=== PATIENT | female | born 1945 | race Caucasian/White ===

== ENCOUNTER → 2017-03-13 | Outpatient (CLI) | payer MEDICARE, OTHER ==
--- NOTE | 2017-03-13 11:00 | US ---
EXAMINATION TYPE: US renal artery duplex complet DATE OF EXAM: 03/13/2017 COMPARISON: NONE CLINICAL HISTORY: I10 essential hypertention, . MEASUREMENTS: RENAL SIZE: Rt Kidney: 11.0 x 3.3 x 4.5cm Lt Kidney: 10.8 x 5.0 x 4.6cm RESISTANCE INDEX Right: 0.70 Left: 0.67 RA/AO RATIO (< 3.5 ) Right: 1.7 Left: 2.0 RA VELOCITY ( < 180 cm/s) Right: 130cm/s Left: 111cm/s Atherosclerotic plaque noted in aorta. IMPRESSION: No diagnostic evidence of renal artery stenosis. There is extensive atherosclerotic plaque involving the aorta.
== END | disposition home or self-care (01) ==
LOC: RADUSMAIN 08:53
PROVIDERS: ATTEND Family Medicine
DX: I70.0 Atherosclerosis of aorta (principal); I10 Essential (primary) hypertension
CPT/HCPCS: 93975

== ENCOUNTER → 2018-02-27 | Outpatient (CLI) | payer MEDICARE, OTHER ==
--- NOTE | 2018-02-28 11:18 | MM ---
Reason for exam: screening (asymptomatic). Last mammogram was performed 2 years ago. History: Patient is postmenopausal. Took estrogen for 6 years 11 months beginning at age 55. Took progesterone for 6 years 11 months beginning at age 55. Physical Findings: A clinical breast exam by your physician is recommended on an annual basis and results should be correlated with mammographic findings. MG 3D Screening Mammo W/Cad Bilateral CC and MLO view(s) were taken. Prior study comparison: February 23, 2016, bilateral MG screening mammo w CAD. December 07, 2011, bilateral digital screening mammo w/CAD. The breast tissue is heterogeneously dense. This may lower the sensitivity of mammography. There is no discrete abnormality. No significant changes when compared with prior studies. ASSESSMENT: Negative, BI-RAD 1 RECOMMENDATION: Routine screening mammogram of both breasts in 1 year.
== END | disposition home or self-care (01) ==
LOC: RADMAMWWP 08:11
PROVIDERS: ATTEND Family Medicine
DX: Z12.31 Encounter for screening mammogram for malignant neoplasm of breast (principal)
CPT/HCPCS: 77063; 77067

== ENCOUNTER → 2018-11-25 | Outpatient (CLI) | payer MEDICARE, OTHER ==
--- NOTE | 2018-11-25 18:00 | ECHOF ---
Referral Reason:I25.10 angina pectoris MEASUREMENTS -------- HEIGHT: 154.9 cm WEIGHT: 60.3 kg BP: 161/76 RVIDd: 2.6 cm (< 3.3) IVSd: 1.1 cm (0.6 - 1.1) LVIDd: 4.0 cm (3.9 - 5.3) LVPWd: 0.9 cm (0.6 - 1.1) IVSs: 1.3 cm LVIDs: 2.9 cm LVPWs: 1.5 cm LA Diam: 3.5 cm (2.7 - 3.8) LAESV Index (A-L): 25.34 ml/m Ao Diam: 2.6 cm (2.0 - 3.7) AV Cusp: 2.0 cm (1.5 - 2.6) MV EXCURSION: 12.234 mm (> 18.000) MV EF SLOPE: 98 mm/s (70 - 150) EPSS: 0.4 cm MV E Fish: 1.12 m/s MV DecT: 153 ms MV A Fish: 0.98 m/s MV E/A Ratio: 1.15 FINDINGS -------- Sinus rhythm. This was a technically adequate study. The left ventricular size is normal. There is borderline concentric left ventricular hypertrophy. Overall left ventricular systolic function is normal with, an EF between 55 - 60 %. The diastolic filling pattern is normal for the age of the patient 11.19. The right ventricle is normal in size. Normal LA size by volume 22+/-6 ml/m2. The right atrial size is normal. Interatrial and interventricular septum intact. The aortic valve is trileaflet, and appears structurally normal. No aortic stenosis or regurgitation. The mitral valve leaflets are mildly thickened. Ordy-sh-gaarsofw mitral regurgitation is present. The tricuspid valve appears structurally normal. Trace tricuspid regurgitation present. Trace/mild (physiologic) pulmonic regurgitation. The aortic root size is normal. Normal inferior vena cava with normal inspiratory collapse consistent with estimated right atrial pre ssure of 5 mmHg. There is no pericardial effusion. CONCLUSIONS -------- 1. Sinus rhythm. 2. This was a technically adequate study. 3. The left ventricular size is normal. 4. There is borderline concentric left ventricular hypertrophy. 5. Overall left ventricular systolic function is normal with, an EF between 55 - 60 %. 6. The diastolic filling pattern is normal for the age of the patient 11.19 7. Normal LA size by volume 22+/-6 ml/m2. 8. The aortic valve is trileaflet, and appears structurally normal. No aortic stenosis or regurgitati on. 9. The mitral valve leaflets are mildly thickened. 10. Pvwe-yu-ydrzyktg mitral regurgitation is present. 11. The tricuspid valve appears structurally normal. 12. Trace tricuspid regurgitation present. 13. Trace/mild (physiologic) pulmonic regurgitation. 14. The aortic root size is normal. 15. Normal inferior vena cava with normal inspiratory collapse consistent with estimated right atrial pressure of 5 mmHg. 16. There is no pericardial effusion. IRRIGATION PUMP INSTALLER: Lida Elise RDCS
== END | disposition home or self-care (01) ==
LOC: RADECHMAIN 11:17
PROVIDERS: ATTEND Internal Medicine Interventional Cardiology
DX: I34.0 Nonrheumatic mitral (valve) insufficiency (principal); I37.1 Nonrheumatic pulmonary valve insufficiency
CPT/HCPCS: 93306

== ENCOUNTER → 2020-01-27 | Outpatient (CLI) | payer MEDICARE, OTHER ==
--- NOTE | 2020-01-27 09:52 | ECHOF ---
Referral Reason:I25.10, I38 MEASUREMENTS -------- HEIGHT: 157.5 cm WEIGHT: 64.4 kg BP: IVSd: 0.9 cm (0.6 - 1.1) LVIDd: 4.1 cm (3.9 - 5.3) LVPWd: 0.9 cm (0.6 - 1.1) IVSs: 1.7 cm LVIDs: 1.3 cm LVPWs: 1.8 cm LAESV Index (A-L): 28.25 ml/m Ao Diam: 2.1 cm (2.0 - 3.7) AV Cusp: 1.5 cm (1.5 - 2.6) LA Diam: 3.1 cm (2.7 - 3.8) MV EXCURSION: 10.152 mm (> 18.000) MV EF SLOPE: 35 mm/s (70 - 150) EPSS: 0.9 cm MV E Fish: 1.07 m/s MV DecT: 265 ms MV A Fish: 1.04 m/s MV E/A Ratio: 1.04 AV maxP.80 mmHg AV meanP.27 mmHg RAP: 5.00 mmHg RVSP: 11.97 mmHg FINDINGS -------- This was a technically good study. The left ventricular size is normal. Left ventricular wall thickness is normal. Overall left vent ricular systolic function is normal with, an EF between 55 - 60 %. The diastolic filling pattern is normal for the age of the patient 12.85. The right ventricle is normal in size. The left atrial size is normal. Normal LA size by volume 22+/-6 ml/m2. The right atrial size is normal. Interatrial and interventricular septum intact. Aortic valve is trileaflet and is mildly thickened. The mitral valve is normal. Mild mitral regurgitation is present. The tricuspid valve appears structurally normal. Mild tricuspid regurgitation present. Right vent ricular systolic pressure is normal at < 35 mmHg. There is no pulmonic regurgitation present. The aortic root size is normal. Normal inferior vena cava with normal inspiratory collapse consistent with estimated right atrial pre ssure of 5 mmHg. There is no pericardial effusion. CONCLUSIONS -------- 1. The left ventricular size is normal. 2. Left ventricular wall thickness is normal. 3. Overall left ventricular systolic function is normal with, an EF between 55 - 60 %. 4. The diastolic filling pattern is normal for the age of the patient 12.85 5. Aortic valve is trileaflet and is mildly thickened. 6. Mild mitral regurgitation is present. 7. Mild tricuspid regurgitation present. 8. There is no pericardial effusion. INJECTION WAX MOLDER: Ayaka Hu RDCS
--- NOTE | 2020-01-27 12:01 | NM ---
EXAMINATION TYPE: NM stress cardiolite complete DATE OF EXAM: 01/27/2020 COMPARISON: NONE HISTORY: I 25.10, I 38 TECHNIQUE: After the intravenous administration of 9.4 mCi Tc 99m Sestamibi - Rest images obtained 4 5 minutes post injection. The patient exercised using a SUE protocol and 1 minute prior to peak e xercise was injected with 25.1 mCi Tc 99m Sestamibi - Stress images obtained 10 minutes post injectio n. Patient achieved greater than 85% of predicted maximal heart rate. FINDINGS: Targeted heart rate was achieved during performance of the study. Review of stress and rest SPECT jarrod ges demonstrates no distinct perfusion abnormality. Gated analysis shows normal wall motion with an estimated left ventricular ejection fraction of 70 %. IMPRESSION: Consider echocardiographic correlation for elevated ejection fraction. No stress induced left ventric ular myocardial ischemia.
--- NOTE | 2020-01-27 13:08 | EST ---
EXERCISE STRESS AGE: 74 SEX: F HT: 5'2" WT: 142 lbs. PROTOCOL: Manolo STAGE: 2 DURATION OF EXERCISE: 4:00 HEART RATE REST: 79 BLOOD PRESSURE REST: 149/75 MAXIMUM HEART RATE ACHIEVED: 136 MAXIMUM BLOOD PRESSURE: 180/85 85% MPHR: 123 100% MPHR: 145 METS: 5.8 INDICATIONS: Hypertension, dyslipidemia. CLINICAL INFORMATION: Baseline EKG shows sinus rhythm, normal axis, normal intervals. Patient exercised on Manolo protocol for a total of 4 minutes achieving 5 METS, 94% of predicted maximal heart rate without chest pain. At peak exercise, there was [address]-segment depression noted in the inferolateral leads. CONCLUSION: 1. Limited exercise tolerance. 2. Abnormal stress test by EKG criteria. 3. Cardiolite portion of the stress test will be reported separately. MMODL / IJN: [id number] /
== END | disposition home or self-care (01) ==
LOC: RADNMMAIN 08:21
PROVIDERS: ATTEND Internal Medicine Interventional Cardiology
DX: I08.1 Rheumatic disorders of both mitral and tricuspid valves (principal); R94.31 Abnormal electrocardiogram [ECG] [EKG]; I25.10 Atherosclerotic heart disease of native coronary artery without angina pectoris
CPT/HCPCS: 93017; 93306; 78452; A9500

== ENCOUNTER → 2022-01-25 | Outpatient (CLI) | payer MEDICARE, OTHER ==
--- NOTE | 2022-01-25 17:59 | US ---
EXAMINATION TYPE: US thyroid st tissue head/neck DATE OF EXAM: 01/25/2022 COMPARISON: NONE CLINICAL HISTORY: 76-year-old female E04.1 thyroid nodule. TECHNIQUE: Multiple sonographic images of the thyroid gland are obtained. FINDINGS: GLAND SIZE: Right Lobe: 5.5 x 2.8 x 3.1 cm Overall Parenchyma: heterogenous Left Lobe: 4.5 x 2.3 x 1.6 cm Overall Parenchyma: heterogeneous Isthmus Thickness: 1.2 cm NODULES RIGHT: # of nodules measured on right: Numerous. Solid two measured. 1. 3.2 X 2.3 x 2.4 cm, upper lateral, solid or almost completely solid, hyperechoic TR 3 nodule, wh ich is wider than tall, with smooth margins, without echogenic foci. 2. 2.0 X 1.2 x 1.2 cm, lower mid, solid or almost completely solid, isoechoic TR 3 nodule, which is wider than tall, with smooth margins, without echogenic foci. LEFT: # of nodules measured on left: 2 1. 1.3 X 1.6 x 1.2 cm, mid mid, mixed cystic and solid, TR 3 nodule, which is taller than wide, wit h smooth margins, without echogenic foci. 2. 1.6 X 1.2 x 1.5 cm, lower mid, spongiform, hypoechoic TR 3 nodule, which is wider than tall, wi th smooth margins, without echogenic foci. ISTHMUS: # of nodules measured in the isthmus: 1 1. 2.9 X 1.8 x 2.4 cm solid or almost completely solid, hyperechoic TR 3 nodule, which is wider nishi n tall, with smooth margins, without echogenic foci. Bilateral neck scanned, no evidence of lymphadenopathy. IMPRESSION: Multinodular goiter. The largest nodules are measured. On the right, a 3.2 cm upper pole TR 3 nodule meets criteria for FNA. In the thyroid isthmus, a 2.9 cm TR 3 nodule needs criteria for FNA. The sue ining nodules can be reassessed at follow-up.
[2022-01-25 23:17] LABS: T4, Free (Free Thyroxine) 1.66 ng/dL (0.800-1.800)
== END | disposition home or self-care (01) ==
LOC: RADUSWWP 15:09
PROVIDERS: ATTEND Otolaryngology
DX: E04.2 Nontoxic multinodular goiter (principal)
CPT/HCPCS: 76536; 84439; 84443; 84481

== ENCOUNTER → 2023-02-21 | Outpatient (CLI) | payer MEDICARE, OTHER ==
--- NOTE | 2023-02-21 12:00 | CA ---
Stress Echo Report Luisa Huggins Age: 77 Gender: F : 1945 Exam Date: 02/21/2023 09:49 Exam Location: [facility] Ht (in): 61 Wt (lb): 131 Ordering Physician: Darya Luque MD Referring Physician: DARYA LUQUE,, [employer] Department Manager: Lida Elise RDCS Technologist Lida Elise RDCS Procedure CPT: Indication: I25.10 Athscl heart disease ICD-9 Codes: Rhythm: Patient History: HTN, ELEVATED CHOLESTEROL LEVELS, FAMILY HX OF HEART DISEASE, PRIOR HEART CATH WITH STENT, RHEUMATIC FEVER Cardiac Medications: Medications in past 24 hours: Contrast: Stress Results Protocol: Manolo Total dose(mL): Exercise Duration (min:sec): 6:[address] Depression (mm): Angina Score: Vega Score: METS: 7.3 Resting HR: 107 Resting BP: 137 / 64 Peak HR: 138 Peak BP: 170 / 68 Max Predicted HR: 142 97 % Max Predicted HR Target HR: 121 Double Product: [id number] Stress Summary: BP Response: Reason for Termination: MAX EXERTION/TARGET HR Cardiac Symptoms: NO SYMPTOMS ECG Analysis Resting ECG: Normal sinus rhythm, normal axis, heart rate 86 beats a minute Stress EC mm flat ST depressions at peak exercise and in early recovery. Returned back to baseline by 3 minutes 50 seconds in recovery. Arrhythmia: Few monomorphic PVCs at peak stress. Sustained arrhythmias Echo Analysis Resting Echo: Normal global LV systolic function. Normal regional resting wall motion Peak Echo Analysis: Normal augmentation of global and segmental systolic function in all myocardial segments. No stress-induced regional wall motion abnormality MEASUREMENTS (Male/Female) Normal Values CONCLUSIONS Good exercise tolerance for age achieving 7.3 METS, at 97% of aged predicted maximum heart rate Normal clinical and hemodynamic response to exercise Ischemic ECG response to exercise Nonischemic echocardiographic response to exercise Overall equivocal treadmill echocardiogram stress test, with positive stress ECG and negative stress echocardiogram Dr Dean Guzman (Electronically Signed) Final Date: 21 February 2023 11:59
== END | disposition home or self-care (01) ==
LOC: RADNMMAIN 09:04
PROVIDERS: ATTEND Internal Medicine Interventional Cardiology
DX: I25.10 Atherosclerotic heart disease of native coronary artery without angina pectoris (principal); I10 Essential (primary) hypertension; E78.00 Pure hypercholesterolemia, unspecified
CPT/HCPCS: 93351

== ENCOUNTER → 2023-02-22 | Outpatient (CLI) | payer MEDICARE, OTHER ==
--- NOTE | 2023-02-26 21:17 | MM ---
Reason for Exam: Screening (asymptomatic). Last mammogram was performed 5 year(s) and 0 month(s) ago. Patient History: Menarche at age 11. First Full-Term at age 22. Postmenopausal. Estrogen for 6 years from age 55 until age 60. Progesterone for 6 years from age 55 until age 60. Risk Values: Zaria 5 year model risk: 1.5%. NCI Lifetime model risk: 2.8%. Prior Study Comparison: 12/07/2011 Bilateral Screening Mammogram, [facility]. 02/23/2016 Bilateral Screening Mammogram, [facility]. 02/27/2018 Bilateral Screening Mammogram, [facility]. Tissue Density: The breast tissue is heterogeneously dense. This may lower the sensitivity of mammography. Findings: Analyzed By CAD. Chronic nodularity in the right breast. There is no suspicious group of microcalcifications or new suspicious mass in either breast. Overall Assessment: Benign, BI-RAD 2 Management: Screening Mammogram of both breasts in 1 year. . Patient should continue monthly self-breast exams. A clinical breast exam by your physician is recommended on an annual basis. This exam should not preclude additional follow-up of suspicious palpable abnormalities. Note on Zaria scores and lifetime risk: 1. A Zaria score greater than 3% is considered moderate risk. If this is the case, consider specialist referral to assess eligibility for a risk reducing agent. 2. If overall lifetime risk for the development of breast cancer is 20% or higher, the patient may qualify for future screening with alternating mammogram and breast MRI. Electronically signed and approved by: Mariann Lara M.D. Radiologist
== END | disposition home or self-care (01) ==
LOC: RADMAMWWP 14:46
PROVIDERS: ATTEND Family Medicine
DX: Z12.31 Encounter for screening mammogram for malignant neoplasm of breast (principal); Z78.0 Asymptomatic menopausal state
CPT/HCPCS: 77063; 77067

== ENCOUNTER 2024-01-08 03:01 | Inpatient (IN) | payer MEDICARE, OTHER ==
[2024-01-08] MEDS ORDERED: NALOXONE 0.4 MG/ML 1 ML VIAL IV PRN (05:01)
[2024-01-08] MEDS ORDERED: MAG HYDROX/AL HYDROX/SIMETH 30 ML CUP PO PRN (05:01)
[2024-01-08] MEDS ORDERED: ACETAMINOPHEN TAB 325 MG TAB PO PRN (05:01)
--- NOTE | 2024-01-08 05:16 | ED ---
Fall HPI - General Chief Complaint: Fall Stated Complaint: Fall Time Seen by Provider: 01/08/24 03:17 Source: patient, EMS Mode of arrival: EMS - History of Present Illness Initial Comments: This patient is 78-year-old woman who arrives here as a transfer from [facility]. The patient had gone to the hospital to have evaluation after she had fallen backwards striking her head and back. The patient had been sitting on the edge of a hot tub, and may have had syncopal episode. The patient had evaluation at the other hospital including CT scan of the brain and C-spine, as well as CT scan of the chest abdomen and pelvis. The patient was found to have L4 compression fracture, with no retropulsion to the cord. There is approximately 15% height loss per the radiology report. The patient is complaining of some back and head pain. Patient denies neurologic symptoms. 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 Witnessed: yes, by bystander Place Fall Occurred: other Loss of Consciousness: none Prolonged Down Time?: no Symptoms Prior to Fall: other Location: head, back Severity: moderate Quality: aching Associated Symptoms: headache - Related Data Home Medications Medication Instructions Recorded Confirmed Metoclopramide [Reglan] 10 mg PO BID PRN 01/06/15 01/08/24 Nitroglycerin Sl Tabs [Nitrostat] 0.4 mg SUBLINGUAL Q5M PRN 01/06/15 01/08/24 Clopidogrel [Plavix] 75 mg PO HS 01/08/24 01/08/24 Famotidine [Pepcid] 20 mg PO QAM 01/08/24 01/08/24 Flunisolide 1 spr EA NOSTRIL BID PRN 01/08/24 01/08/24 Levothyroxine Sodium [Synthroid] 37.5 mcg PO DAILY 01/08/24 01/08/24 Rosuvastatin [Crestor] 20 mg PO QAM 01/08/24 01/08/24 amLODIPine [Norvasc] 10 mg PO QAM 01/08/24 01/08/24 Previous Rx's Medication Instructions Recorded Cyclobenzaprine [Flexeril] 10 mg PO DAILY #7 tab 01/09/24 Docusate [Colace] 100 mg PO BID #30 capsule 01/09/24 lisinopriL [Zestril] 20 mg PO HS tab 01/09/24 traMADol HCl [Ultram] 50 mg PO Q6H PRN #28 tab 01/09/24 Allergies Allergy/AdvReac Type Severity Reaction Status Date / Time diltiazem [From Cardizem] Allergy Unknown Verified 01/08/24 08:14 atropine AdvReac SEVERE Verified 01/08/24 08:14 ANXIETY codeine AdvReac Nausea & Verified 01/08/24 08:14 Vomiting dimenhydrinate AdvReac PANIC Verified 01/08/24 08:14 [From Dramamine] ATTACK nebivolol HCl [From Bystolic] AdvReac SEVERE Verified 01/08/24 08:14 DEPRESSION scopolamine AdvReac HALLUCINATIONS, Verified 01/08/24 08:14 RAPID HEARTBEAT Review of Systems ROS Statement: Those systems with pertinent positive or pertinent negative responses have been documented in the HPI. ROS Other: All systems not noted in ROS Statement are negative. Constitutional: Denies: weakness Eyes: Denies: eye pain, vision change ENT: Denies: hearing loss Respiratory: Denies: cough, dyspnea, wheezes Cardiovascular: Denies: chest pain, palpitations, edema Gastrointestinal: Denies: abdominal pain, vomiting, diarrhea Genitourinary: Denies: dysuria, hematuria Musculoskeletal: Reports: as per HPI, back pain. Denies: arthralgia Skin: Denies: rash Neurological: Reports: headache. Denies: weakness, numbness, confusion Hematological/Lymphatic: Reports: easy bleeding (Taking Plavix) Past Medical History Past Medical History: Coronary Artery Disease (CAD), GERD/Reflux, Hyperlipidemia, Hypertension, Osteoarthritis (OA), Thyroid Disorder Additional Past Medical History / Comment(s): MACULAR DEGENERATION History of Any Multi-Drug Resistant Organisms: None Reported Past Surgical History: Adenoidectomy, Heart Catheterization With Stent, Tonsillectomy, Tubal Ligation Additional Past Surgical History / Comment(s): COLONOSCOPY, D&C , Past Anesthesia/Blood Transfusion Reactions: Motion Sickness, Postoperative Nausea & Vomiting (PONV) Date of Last Stent Placement:: 11/09/10 Past Psychological History: No Psychological Hx Reported Smoking Status: Never smoker Past Alcohol Use History: Occasional Past Drug Use History: None Reported - Past Family History Mother Family Medical History: Cancer General Exam Limitations: no limitations General appearance: alert, in no apparent distress Head exam: Present: normocephalic, other (Samantha to posterior scalp) Eye exam: Present: normal appearance, PERRL, EOMI. Absent: scleral icterus, conjunctival injection, nystagmus ENT exam: Present: normal oropharynx Neck exam: Present: normal inspection, full ROM. Absent: tenderness Respiratory exam: Present: normal lung sounds bilaterally. Absent: respiratory distress, wheezes, rales, rhonchi, stridor, chest wall tenderness, accessory muscle use Cardiovascular Exam: Present: regular rate, normal rhythm, normal heart sounds. Absent: systolic murmur, diastolic murmur, rubs, gallop GI/Abdominal exam: Present: soft. Absent: distended, tenderness, guarding, rebound, rigid, mass Extremities exam: Present: normal inspection, normal capillary refill. Absent: pedal edema, calf tenderness Back exam: Present: normal inspection. Absent: CVA tenderness (R), CVA t enderness (L), vertebral tenderness Neurological exam: Present: alert, oriented X3. Absent: motor sensory deficit Skin exam: Present: warm, dry, intact, normal color. Absent: rash Course Vital Signs 01/08/24 01/08/24 01/08/24 03:01 05:37 10:55 Temperature 98.7 F Pulse Rate 107 H 104 H 102 H Respiratory 16 16 20 Rate Blood Pressure 160/72 162/76 136/69 O2 Sat by Pulse 96 98 97 Oximetry 01/08/24 01/08/24 13:42 15:23 Temperature 98.9 F Pulse Rate 78 75 Respiratory 20 20 Rate Blood Pressure 134/59 135/73 O2 Sat by Pulse 96 96 Oximetry Medical Decision Making - Medical Decision Making Was pt. sent in by a medical professional or institution (, PA, MIX TECHNICIAN, urgent care, hospital, or senior living...) When possible be specific @ -Patient is transferred here from the outside hospital to have admission after head injury Did you speak to anyone other than the patient for history (EMS, parent, family, police, friend...)? What history was obtained from this source @ -[No] Did you review nursing and triage notes (agree or disagree)? Why? @ -[I reviewed and agree with nursing and triage notes] Were old charts reviewed (outside hosp., previous admission, EMS record, old EKG, old radiological studies, urgent care reports/EKG's, senior living records)? Report findings @ -[The transfer charts were reviewed] Differential Diagnosis (chest pain, altered mental status, abdominal pain women, abdominal pain men, vaginal bleeding, weakness, fever, dyspnea, syncope, headache, dizziness, GI bleed, back pain, seizure, CVA, palpatations, mental health, musculoskeletal)? @ -[Differential Musculoskeletal Muscular strain, contusion, ligament sprain, fracture, arthritis, septic arthritis, bursitis, cellulitis, muscle spasm, nerve compression, DVT, arterial occlusion, herpes zoster, electrolyte abnormality, tumor.... This is not meant to be in all inclusive list EKG interpreted by me (3pts min.). @ -[As above] X-rays interpreted by me (1pt min.). @ -[None done] CT interpreted by me (1pt min.). @ -[None done] U/S interpreted by me (1pt. min.). @ -[None done] What testing was considered but not performed or refused? (CT, X-rays, U/S, labs)? Why? @ -[None] What meds were considered but not given or refused? Why? @ -[None] Did you discuss the management of the patient with other professionals (professionals i.e. , PA, MIX TECHNICIAN, lab, RT, psych nurse, social secretary, rn hospital, teacher, staff readiness officer, correctional casework specialist)? Give summary @ -[Case discussed with the on-call surgeon who will admit Was smoking cessation discussed for >3mins.? @ -[No] Was critical care preformed (if so, how long)? @ -[No] Were there social determinants of health that impacted care today? How? (Homelessness, low income, unemployed, alcoholism, drug addiction, transportation, low edu. Level, literacy, decrease access to med. care, skilled nursing, rehab)? @ -[No] Was there de-escalation of care discussed even if they declined (Discuss DNR or withdrawal of care, Hospice)? DNR status @ -[No] What co-morbidities impacted this encounter? (DM, HTN, Smoking, COPD, CAD, Cancer, CVA, ARF, Chemo, Hep., AIDS, mental health diagnosis, sleep apnea, morbid obesity)? @ -[None] Was patient admitted / discharged? Hospital course, mention meds given and route, prescriptions, significant lab abnormalities, going to OR and other pertinent info. @ -[Patient is 78-year-old woman who fell backwards from the side of a hot tub striking her head. The workup at the outside hospital not revealing acute surgical problem but the patient will be admitted to observation. Undiagnosed new problem with uncertain prognosis? @ -[No] Drug Therapy requiring intensive monitoring for toxicity (Heparin, Nitro, Insulin, Cardizem)? @ -[No] Were any procedures done? @ -[No] Diagnosis/symptom? @ -[Acute fall injury Acute closed head injury and patient with antiplatelet medication L4 vertebral compression fracture Acute, or Chronic, or Acute on Chronic? @ -[Acute Uncomplicated (without systemic symptoms) or Complicated (systemic symptoms)? @ -[Uncomplicated Side effects of treatment? @ -[No] Exacerbation, Progression, or Severe Exacerbation? @ -[No] Poses a threat to life or bodily function? How? (Chest pain, USA, ME, pneumonia, PE, COPD, DKA, ARF, appy, cholecystitis, CVA, Diverticulitis, Homicidal, Suicidal, threat to staff... and all critical care pts) @ -[Low risk - Lab Data Result diagrams: 01/08/24 11:22 01/08/24 11:22 Lab Results 01/08/24 01/08/24 01/08/24 Range/Units 11:22 11:22 11:22 WBC 10.1 (3.8-10.6) k/uL RBC 4.49 (3.80-5.40) m/uL Hgb 13.5 (11.4-16.0) gm/dL Hct 42.3 (34.0-46.0) % MCV 94.2 (80.0-100.0) fL MCH 30.0 (25.0-35.0) pg MCHC 31.9 (31.0-37.0) g/dL RDW 13.1 (11.5-15.5) % Plt Count 256 (150-450) k/uL MPV 8.1 Neutrophils % 76 % Lymphocytes % 16 % Monocytes % 6 % Eosinophils % 1 % Basophils % 0 % Neutrophils # 7.6 (1.3-7.7) k/uL Lymphocytes # 1.6 (1.0-4.8) k/uL Monocytes # 0.6 (0-1.0) k/uL Eosinophils # 0.1 (0-0.7) k/uL Basophils # 0.0 (0-0.2) k/uL Sodium 140 (137-145) mmol/L Potassium 4.5 (3.5-5.1) mmol/L Chloride 104 (98-107) mmol/L Carbon Dioxide 27 (22-30) mmol/L Anion Gap 9 mmol/L BUN 16 (7-17) mg/dL Creatinine 0.67 (0.52-1.04) mg/dL Est GFR (CKD-EPI)AfAm >90 (>60 ml/min/1.73 sqM) Est GFR (CKD-EPI)NonAf 84 (>60 ml/min/1.73 sqM) Glucose 102 H (74-99) mg/dL Calcium 9.7 (8.4-10.2) mg/dL Total Bilirubin 0.7 (0.2-1.3) mg/dL AST 30 (14-36) U/L ALT 21 (4-34) U/L Alkaline Phosphatase 97 (38-126) U/L Troponin I 0.022 (0.000-0.034) ng/mL Total Protein 7.1 (6.3-8.2) g/dL Albumin 4.6 (3.5-5.0) g/dL Globulin 2.5 g/dL Albumin/Globulin Ratio 1.8 Disposition Clinical Impression: Fall, Compression fracture of L4 vertebra Disposition: ADMITTED IP TO THIS HOSP Condition: Stable Is patient prescribed a controlled substance at d/c from ED?: No
[2024-01-08] MEDS: SODIUM CHLORIDE 0.9% 1,000 ML IV SCH (05:41)
[2024-01-08] MEDS: ONDANSETRON 4 MG/2 ML VIAL IVP PRN (05:42)
[2024-01-08] MEDS: MORPHINE SULFATE 4 MG/ML SYRINGE IV PRN (05:45)
--- NOTE | 2024-01-08 11:22 | P.HPIM ---
History of Present Illness H&P Date: 01/08/24 Chief Complaint: Fall after syncope Patient is a 78-year-old female with a past medical history of hypertension, hyperlipidemia, coronary disease status post stent placement in 2010, severe GERD who initially presented to the ED in [place] after a fall likely due to syncope. Patient states that she was in the hot tub which was hotter than usual. She then felt dizzy so she sat on the edge of the hot tub. The next thing she remembers is she was on the ground. She states that she had fallen 4 feet onto concrete surface. Patient states that she has had 4 syncopal episodes in the past. She believes it was likely due to dehydration. I do not have any records from [facility] however patient stated when she initially presented her blood pressure was low and she was told by physicians there that her labs were consistent with dehydration. Patient states that her house manager is at [facility] and she just saw her house manager last week and everything was fine. She states that she has had a loop recorder in the past that was unremarkable. Patient also states that she has a history of mitral regurgitation and her house manager is aware. Patient states that she is still having back pain. At the outside hospital she was found to have a lumbar compression fracture. ROS: 10 ROS reviewed and are negative except as noted in HPI Physical exam General: [Alert and oriented, well nourished, no acute distress]. Eye: [PERRL, EOMI, normal conjunctiva]. HENT: [Normocephalic, clear tympanic membranes, normal hearing, moist oral mucosa, no scleral icterus, no sinus tenderness]. Neck: [Supple, non-tender, no carotid bruits, no JVD, no lymphadenopathy]. Lungs: [Clear to auscultation and percussion, non-labored respiration]. Heart: [Normal rate, regular rhythm, gallop or edema, murmur in the mitral area]. Abdomen: [Soft, non-tender, non-distended, normal bowel sounds, no masses]. Musculoskeletal: [Normal range of motion and strength, no tenderness or swelling]. Skin: [Skin is warm, dry and pink, no rashes or lesions]. Neurologic: [Awake, alert, and oriented X3, CN II-XII intact]. Psychiatric: [Cooperative, appropriate mood and affect]. Assessment and plan Fall Syncope suspect due to dehydration I do not think any further workup for syncope is needed at this time as likely etiology is dehydration. Patient states that she is already had extensive cardiac workup in the past and has close follow-up with her house manager at [facility]. I will only check a troponin and EKG. Check BMP and CBC Hypertension Blood pressure is now elevated. Will start the patient on her home meds amlodipine 10 mg p.o. daily and lisinopril 20 mg p.o. twice daily and hydralazine 100 mg p.o. 3 times daily Hyperlipidemia Will restart her statin Hypothyroidism Start levothyroxine 37.5 mcg p.o. daily GERD Start home medication Pepcid 20 mg p.o. daily Coronary artery disease Hold Plavix until cleared by trauma service Lumbar compression fracture As per your trauma service DVT prophylaxis: Will defer to primary team Past Medical History Past Medical History: Coronary Artery Disease (CAD), GERD/Reflux, Hyperlipidemia, Hypertension, Osteoarthritis (OA), Thyroid Disorder Additional Past Medical History / Comment(s): MACULAR DEGENERATION History of Any Multi-Drug Resistant Organisms: None Reported Past Surgical History: Adenoidectomy, Heart Catheterization With Stent, Tonsillectomy, Tubal Ligation Additional Past Surgical History / Comment(s): COLONOSCOPY, D&C , Past Anesthesia/Blood Transfusion Reactions: Motion Sickness, Postoperative Nausea & Vomiting (PONV) Date of Last Stent Placement:: 11/09/10 Past Psychological History: No Psychological Hx Reported Smoking Status: Never smoker Past Alcohol Use History: Occasional Past Drug Use History: None Reported - Past Family History Mother Family Medical History: Cancer Medications and Allergies Home Medications Medication Instructions Recorded Confirmed Type Metoclopramide [Reglan] 10 mg PO BID PRN 01/06/15 01/08/24 History Nitroglycerin Sl Tabs [Nitrostat] 0.4 mg SUBLINGUAL Q5M PRN 01/06/15 01/08/24 History hydrALAZINE HCL [Apresoline] 100 mg PO TID 01/06/15 01/08/24 History Clopidogrel [Plavix] 75 mg PO HS 01/08/24 01/08/24 History Famotidine [Pepcid] 20 mg PO QAM 01/08/24 01/08/24 History Flunisolide 1 spr EA NOSTRIL BID PRN 01/08/24 01/08/24 History Levothyroxine Sodium [Synthroid] 37.5 mcg PO DAILY 01/08/24 01/08/24 History Rosuvastatin [Crestor] 20 mg PO QAM 01/08/24 01/08/24 History amLODIPine [Norvasc] 10 mg PO QAM 01/08/24 01/08/24 History lisinopriL [Zestril] 20 mg PO BID 01/08/24 01/08/24 History Allergies Allergy/AdvReac Type Severity Reaction Status Date / Time diltiazem [From Cardizem] Allergy Unknown Verified 01/08/24 08:14 atropine AdvReac SEVERE Verified 01/08/24 08:14 ANXIETY codeine AdvReac Nausea & Verified 01/08/24 08:14 Vomiting dimenhydrinate AdvReac PANIC Verified 01/08/24 08:14 [From Dramamine] ATTACK nebivolol HCl [From Bystolic] AdvReac SEVERE Verified 01/08/24 08:14 DEPRESSION scopolamine AdvReac HALLUCINATIONS, Verified 01/08/24 08:14 RAPID HEARTBEAT Physical Exam Osteopathic Statement: *. No significant issues noted on an osteopathic structural exam other than those noted in the History and Physical/Consult. Vitals: Vital Signs Temp Pulse Resp BP Pulse Ox 01/08/24 10:55 102 H 20 136/69 97 01/08/24 05:37 104 H 16 162/76 98 01/08/24 03:01 98.7 F 107 H 16 160/72 96 Intake and Output 01/07/24 01/08/24 01/08/24 22:59 06:59 14:59 Other: Weight 61.235 kg
[2024-01-08 11:34] LABS: Basophils % (A) 0 %; Eosinophils # (A) 0.1 k/uL (0-0.7); Eosinophils % (A) 1 %; HCT 42.3 % (34.0-46.0); HGB 13.5 gm/dL (11.4-16.0); Lymphocytes # (A) 1.6 k/uL (1.0-4.8); Lymphocytes % (A) 16 %; MCHC 31.9 g/dL (31.0-37.0); MCV 94.2 fL (80.0-100.0); Mean Platelet Volume 8.1; Monocytes # (A) 0.6 k/uL (0-1.0); Monocytes % (A) 6 %; Neutrophils # (A) 7.6 k/uL (1.3-7.7); Neutrophils % (A) 76 %; Platelet Count 256 k/uL (150-450); RBC 4.49 m/uL (3.80-5.40); RDW 13.1 % (11.5-15.5); WBC 10.1 k/uL (3.8-10.6)
[2024-01-08 11:49] LABS: ALT 21 U/L (4-34); AST 30 U/L (14-36); African American GFR (CKD) >90 (>60 ml/min/1.73 sqM); Albumin 4.6 g/dL (3.5-5.0); Albumin/Globulin Ratio 1.8; Alkaline Phosphatase 97 U/L (38-126); Anion Gap 9 mmol/L; Blood Urea Nitrogen 16 mg/dL (7-17); Calcium 9.7 mg/dL (8.4-10.2); Carbon Dioxide 27 mmol/L (22-30); Chloride 104 mmol/L (98-107); Globulin 2.5 g/dL; Glucose 102 mg/dL (74-99); Non-African American GFR(CKD) 84 (>60 ml/min/1.73 sqM); Potassium 4.5 mmol/L (3.5-5.1); Sodium 140 mmol/L (137-145); Total Bilirubin 0.7 mg/dL (0.2-1.3); Total Protein 7.1 g/dL (6.3-8.2)
[2024-01-08] MEDS ORDERED: HYDROcodone/APAP 5-325MG 1 EACH TAB PO PRN (13:10)
--- NOTE | 2024-01-08 13:13 | P.GSHP ---
History of Present Illness H&P Date: 01/08/24 CHIEF COMPLAINT: Syncopal episode with hitting the back of her head and back HISTORY OF PRESENT ILLNESS: This is a 78-year-old female who was a transfer from [facility]. Patient had been sitting on the edge of a hot tub yesterday evening where she became lightheaded and had a syncopal episode. Patient believes she had passed out for about 3 to 4 minutes and fell hitting the back of her head and her lower back on the cement. Patient does have head laceration with gustabo that were placed at [facility]. Patient had CT scan of the chest, abdomen and pelvis, CT scan of the brain and cervical spine. Imaging did report acute/subacute L4 compression fracture otherwise no a cute findings noted.. Patient was seen in the ER. She reports her pain is controlled. She denies any nausea or vomiting. Denies any abdominal pain. Denies any chest pain or shortness of breath. She is having flatus. Urinating without difficulty and reports no blood in the urine. She does take Plavix at home. This is currently on hold. Patient has recently seen her director print through [facility] about a week ago. She has a known history of mitral valve prolapse and mild to moderate mitral regurgitation. Blood pressure has been elevated. She is mildly tachycardic. PAST MEDICAL HISTORY: See below PAST SURGICAL HISTORY: See below MEDICATIONS: See below ALLERGIES: See below SOCIAL HISTORY: No illicit drug use. REVIEW OF SYSTEMS: CONSTITUTIONAL: Denies fever or chills. HEENT: Denies blurred vision, vision changes, or eye pain. Denies hemoptysis CARDIOVASCULAR: Denies chest pain or pressure. RESPIRATORY: No shortness of breath. GASTROINTESTINAL: See HPI for pertinent findings HEMATOLOGIC: Denies bleeding disorders. GENITOURINARY: Denies any blood in urine or increased urinary frequency. SKIN: Denies pruitis. Denies rash. PHYSICAL EXAM: VITAL SIGNS: Reviewed GENERAL: Well-developed in no acute distress. HEENT: No sclera icterus. Extraocular movements grossly intact. Pupils equal round and intact. Moist buccal mucosa. Head is normocephalic. No nasal drainage. Patient has a laceration to the posterior right aspect of her head with gustabo in place. Dried blood noted. ABDOMEN: Soft. Nondistended. Nontender. NEUROLOGIC: Alert and oriented. Cranial nerves II through XII grossly intact. Extremities: Patient is able to move all 4 extremities Skin: no abrasions to the back LABORATORY DATA: WBC 10.1 Hgb 13.5 platelets 256 Sodium 140 potassium 4.5 creatinine 0.67 Glucose 102 LFTs normal Troponin 0.022 IMAGING: Imaging as stated above ASSESSMENT: 1. Syncopal episode with fall and trauma to head and lower back 2. Posterior head lack status post gustabo 3. Acute/subacute L4 compression fracture 4. Hypertension PLAN: -Consult Ortho spinal service regarding L4 compression fracture -Medicine service consulted for medical management -Continue heart healthy diet -Hold Plavix for now -Continue pain management -GI prophylaxis Pepcid and DVT prophylaxis subcu heparin Physician Oral Surgery Assistant note has been reviewed by physician. Signing provider agrees with the documented findings, assessment, and plan of care. Past Medical History Past Medical History: Coronary Artery Disease (CAD), GERD/Reflux, Hyperlipidemia, Hypertension, Osteoarthritis (OA), Thyroid Disorder Additional Past Medical History / Comment(s): MACULAR DEGENERATION History of Any Multi-Drug Resistant Organisms: None Reported Past Surgical History: Adenoidectomy, Heart Catheterization With Stent, Tonsillectomy, Tubal Ligation Additional Past Surgical History / Comment(s): COLONOSCOPY, D&C , Past Anesthesia/Blood Transfusion Reactions: Motion Sickness, Postoperative Nausea & Vomiting (PONV) Date of Last Stent Placement:: 11/09/10 Past Psychological History: No Psychological Hx Reported Smoking Status: Never smoker Past Alcohol Use History: Occasional Past Drug Use History: None Reported - Past Family History Mother Family Medical History: Cancer Medications and Allergies Home Medications Medication Instructions Recorded Confirmed Type Metoclopramide [Reglan] 10 mg PO BID PRN 01/06/15 01/08/24 History Nitroglycerin Sl Tabs [Nitrostat] 0.4 mg SUBLINGUAL Q5M PRN 01/06/15 01/08/24 History hydrALAZINE HCL [Apresoline] 100 mg PO TID 01/06/15 01/08/24 History Clopidogrel [Plavix] 75 mg PO HS 01/08/24 01/08/24 History Famotidine [Pepcid] 20 mg PO QAM 01/08/24 01/08/24 History Flunisolide 1 spr EA NOSTRIL BID PRN 01/08/24 01/08/24 History Levothyroxine Sodium [Synthroid] 37.5 mcg PO DAILY 01/08/24 01/08/24 History Rosuvastatin [Crestor] 20 mg PO QAM 01/08/24 01/08/24 History amLODIPine [Norvasc] 10 mg PO QAM 01/08/24 01/08/24 History lisinopriL [Zestril] 20 mg PO BID 01/08/24 01/08/24 History Allergies Allergy/AdvReac Type Severity Reaction Status Date / Time diltiazem [From Cardizem] Allergy Unknown Verified 01/08/24 08:14 atropine AdvReac SEVERE Verified 01/08/24 08:14 ANXIETY codeine AdvReac Nausea & Verified 01/08/24 08:14 Vomiting dimenhydrinate AdvReac PANIC Verified 01/08/24 08:14 [From Dramamine] ATTACK nebivolol HCl [From Bystolic] AdvReac SEVERE Verified 01/08/24 08:14 DEPRESSION scopolamine AdvReac HALLUCINATIONS, Verified 01/08/24 08:14 RAPID HEARTBEAT Surgical - Exam Osteopathic Statement: *. No significant issues noted on an osteopathic structural exam other than those noted in the History and Physical/Consult. Vital Signs Temp Pulse Resp BP Pulse Ox 98.7 F 107 H 16 160/72 96 01/08/24 03:01 01/08/24 03:01 01/08/24 03:01 01/08/24 03:01 01/08/24 03:01 Patient Seen Date: 01/08/24 Patient Seen Time: 09:15 Results - Labs 01/08/24 11:22 01/08/24 11:22 Assessment and Plan Assessment: follow up repeat ct head follow up ortho spine recs
--- NOTE | 2024-01-08 15:20 | CT ---
EXAMINATION TYPE: CT brain wo con DATE OF EXAM: 01/08/2024 COMPARISON: 09/05/2012 INDICATION: Head trauma, stitches placed. R/O brain bleed DLP: 1168.4 mGycm, Automated exposure control for dose reduction was used. CONTRAST: None CT of the brain is performed utilizing 3 mm thick sections through the posterior fossa and 3 mm thick sections through the remaining calvarium. Study is performed within 24 hours of arrival to the hosp [place]. No abnormal hyperdensity is present to suggest an acute intracranial hemorrhage. No mass lesion is evident. No acute infarcts are evident. Chronic white matter changes are within the left basal ganglion and co jenniffer radiata, present previously. Tiny hypodensities within the right basal ganglion, stable. Ventricles and sulci are appropriate for the patient age. Paranasal sinuses and mastoid air cells within the [id number] are clear. Right occipital cutaneous surgical skin gustabo are present IMPRESSION: 1. No acute intracranial process. Follow up MRI can be performed as clinically indicated. 2. Chronic periventricular white matter ischemic type changes [facility], Workstation: [facility], 01/08/2024 3:18 PM
[2024-01-08] MEDS: hydrALAZINE HCL 50 MG TAB PO SCH (15:23)
--- NOTE | 2024-01-08 15:30 | XR ---
EXAMINATION TYPE: XR lumbar spine 2 or 3V DATE OF EXAM: 01/08/2024 3:04 PM COMPARISON: CT CLINICAL INDICATION: Female, 78 years old with history of L4 fracture s/p fall; [facility] TECHNIQUE: XR lumbar spine 2 or 3V - Frontal, lateral and coned in L5-S1 lateral views of the spine. FINDINGS: L4 vertebral body compression deformity with 25% height loss. No evidence for significant s rafael canal or neural foraminal stenosis at this level. There is normal alignment of the lumbar verte bral bodies. Scattered disc space narrowing. Multilevel marginal osteophyte formation throughout the visualized spine. There is facet joint arthropathy throughout the spine. Scattered at least mild neur al foraminal stenosis.There is atherosclerosis of the arterial vasculature. IMPRESSION: Compression deformity to the L4 vertebral body with 25% height loss. No significant retropulsion on r adiography. [facility], , 01/08/2024 3:27 PM
--- NOTE | 2024-01-08 15:31 | P.CNOR ---
History of Present Illness - [facility] Consult date: 01/08/24 Requesting physician: Ira Magana Consult reason: low back pain (L4 fracture status post fall) History of present illness: Patient is a very pleasant 78-year-old female who is seen examined the bedside with her daughters present. Patient was transferred from [facility]. She was status post fall after a syncopal episode. She has had some increased lumbosacral pain since that time. Imaging taken at [facility] documents L4 compression fracture. This imaging is not available for visualization. Patient states she is have a history of falls over the past several years. She denies any lower extremity weakness or radiculopathy bilaterally. She is known to to be on long-term anticoagulation with Plavix. She is currently getting repeat CT imaging status post fall to rule out bleed. Patient did suffer a head laceration requiring gustabo to the posterior head at the time of the fall. She is admitted to trauma surgery. She is does not have any other current complaints at the bedside. She states she would like to work through conservative treatment options for her lumbar spine. X-ray imaging of her lumbar spine is pending. Past Medical History Past Medical History: Coronary Artery Disease (CAD), GERD/Reflux, Hyperlipidemia, Hypertension, Osteoarthritis (OA), Thyroid Disorder Additional Past Medical History / Comment(s): MACULAR DEGENERATION History of Any Multi-Drug Resistant Organisms: None Reported Past Surgical History: Adenoidectomy, Heart Catheterization With Stent, Tonsillectomy, Tubal Ligation Additional Past Surgical History / Comment(s): COLONOSCOPY, D&C , Past Anesthesia/Blood Transfusion Reactions: Motion Sickness, Postoperative Nausea & Vomiting (PONV) Date of Last Stent Placement:: 11/09/10 Past Psychological History: No Psychological Hx Reported Smoking Status: Never smoker Past Alcohol Use History: Occasional Past Drug Use History: None Reported - Past Family History Mother Family Medical History: Cancer Medications and Allergies Home Medications Medication Instructions Recorded Confirmed Type Metoclopramide [Reglan] 10 mg PO BID PRN 01/06/15 01/08/24 History Nitroglycerin Sl Tabs [Nitrostat] 0.4 mg SUBLINGUAL Q5M PRN 01/06/15 01/08/24 History hydrALAZINE HCL [Apresoline] 100 mg PO TID 01/06/15 01/08/24 History Clopidogrel [Plavix] 75 mg PO HS 01/08/24 01/08/24 History Famotidine [Pepcid] 20 mg PO QAM 01/08/24 01/08/24 History Flunisolide 1 spr EA NOSTRIL BID PRN 01/08/24 01/08/24 History Levothyroxine Sodium [Synthroid] 37.5 mcg PO DAILY 01/08/24 01/08/24 History Rosuvastatin [Crestor] 20 mg PO QAM 01/08/24 01/08/24 History amLODIPine [Norvasc] 10 mg PO QAM 01/08/24 01/08/24 History lisinopriL [Zestril] 20 mg PO BID 01/08/24 01/08/24 History Allergies Allergy/AdvReac Type Severity Reaction Status Date / Time diltiazem [From Cardizem] Allergy Unknown Verified 01/08/24 08:14 atropine AdvReac SEVERE Verified 01/08/24 08:14 ANXIETY codeine AdvReac Nausea & Verified 01/08/24 08:14 Vomiting dimenhydrinate AdvReac PANIC Verified 01/08/24 08:14 [From Dramamine] ATTACK nebivolol HCl [From Bystolic] AdvReac SEVERE Verified 01/08/24 08:14 DEPRESSION scopolamine AdvReac HALLUCINATIONS, Verified 01/08/24 08:14 RAPID HEARTBEAT Physical Examination Physical exam: Patient is awake, alert, and oriented 3 Vital signs stable Examination of lumbar spine reveals skin is intact with no abrasions, lacerations, or bruises; no erythema, purulence or signs of infection Pain with palpation along the lumbosacral junction and over the right sacroiliac joint Dorsiflexion and plantarflexion positive sustained bilaterally Patient is able to stand at bedside independently without any significant difficulty Results - Labs Labs: Abnormal Lab Results - Last 24 Hours (Table) 01/08/24 Range/Units 11:22 Glucose 102 H (74-99) mg/dL H & H 01/08/24 Range/Units 11:22 Hgb 13.5 (11.4-16.0) gm/dL Hct 42.3 (34.0-46.0) % Result Diagrams: 01/08/24 11:22 01/08/24 11:22 Assessment and Plan Assessment: Assessment: Status post fall Acute lumbosacral pain Syncopal episode L4 compression fracture Hypertension Hyperlipidemia Thyroid disorder Coronary artery disease Posterior head laceration requiring staple status post fall (1) Episode of syncope Current Visit: Yes Status: Acute Code(s): R55 - SYNCOPE AND COLLAPSE SNOMED Code(s): 796406853 (2) Hypertension Current Visit: Yes Status: Acute Code(s): I10 - ESSENTIAL (PRIMARY) HYPERTENSION SNOMED Code(s): 40272977 (3) Hyperlipidemia Current Visit: Yes Status: Acute Code(s): E78.5 - HYPERLIPIDEMIA, UNSPECIFIED SNOMED Code(s): 22730217 (4) Current use of retirement anticoagulation Current Visit: Yes Status: Acute Code(s): Z79.01 - [facility] (CURRENT) USE OF ANTICOAGULANTS SNOMED Code(s): 858977090 (5) Thyroid disorder Current Visit: Yes Status: Acute Code(s): E07.9 - DISORDER OF THYROID, UNSPECIFIED SNOMED Code(s): 50995799 (6) Coronary artery disease Current Visit: Yes Status: Acute Code(s): I25.10 - ATHSCL HEART DISEASE OF [place] CORONARY ARTERY W/O ANG PCTRS SNOMED Code(s): 79023442 (7) Laceration of head Current Visit: Yes Status: Acute Code(s): S01.91XA - LACERATION W/O FOREIGN BODY OF UNSP PART OF HEAD, INIT SNOMED Code(s): 432194633 (8) Compression fracture of L4 vertebra Current Visit: Yes Status: Acute Code(s): S32.040A - [place] COMPRESSION FRACTURE OF FOURTH LUMBAR VERTEBRA, INIT SNOMED Code(s): 851684295 (9) Fall Current Visit: Yes Status: Acute Code(s): W19.XXXA - UNSPECIFIED FALL, INITIAL ENCOUNTER SNOMED Code(s): 6678621 (10) Acute lumbar back pain Current Visit: Yes Status: Acute Code(s): M54.50 - LOW BACK PAIN, UNSPECIFIED SNOMED Code(s): 947190659 Plan: Plan: 1. After reviewing of imaging, physical examination the patient, and further discussion with the patient, will currently plan to have the patient start working through conservative treatment at this time. Patient was diagnosed with further imaging with an L4 compression fracture while at [facility]. Will currently plan to obtain x-ray imaging with AP and lateral views for tk avendaño evaluation of her L4 fracture. Patient does have increased lumbosacral pain status post fall. At this time we'll plan for bracing. A prescription has been written and provided to case management for an LSO brace. Once this brace is delivered and fitted appropriately, patient should wear this brace while sitting upright at greater than 45, during increase activities, during ambulation. Brace does not have to or while lying in bed or while bathing. Patient may mobilize to the restroom before her brace is delivered but patient should avoid working with physical therapy or increased activities, bending, twisting, or ambulation. Following fitting of this brace, patient is clear for discharge from an orthopedic spine standpoint. Following discharge, patient may follow-up with Andrae Duran PA-C or Dr. Dada Clancy at [facility]. Currently planning for any acute surgical intervention in regards to her lumbar spine. Patient would like to work through conservative treatment options. Time with Patient: Greater than 30 (Including obtaining history, physical examination, reviewing of imaging, and dictation.)
[2024-01-08] MEDS ORDERED: CYCLOBENZAPRINE 5 MG TAB PO PRN (18:48)
[2024-01-08] MEDS: HEPARIN SODIUM,PORCINE 5,000 UNIT/ML 1 ML VIAL SQ SCH (22:22)
[2024-01-08] MEDS: lisinopriL 20 MG TAB PO SCH (22:23)
[2024-01-09 02:55] VITALS: RESP 16
[2024-01-09 07:06] VITALS: TEMP 98
[2024-01-09] MEDS: LEVOTHYROXINE 75 MCG TAB PO SCH (07:54)
[2024-01-09] MEDS: ATORVASTATIN 40 MG TAB PO SCH (07:55)
[2024-01-09] MEDS: DOCUSATE 100 MG CAP PO SCH (07:55)
[2024-01-09] MEDS: FAMOTIDINE 20 MG TAB PO SCH (07:55)
[2024-01-09] MEDS: amLODIPine 10 MG TAB PO SCH (07:55)
--- NOTE | 2024-01-09 11:11 | P.PN ---
Subjective Progress Note Date: 01/09/24 Patient seen this morning. Her blood pressure on the low side. However she is denying any dizziness. Patient was getting her hair washed by her family member at the sink. 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 She is on multiple blood pressure medications. I will discontinue hydralazine. I will change lisinopril to only at bedtime. Discharge medication reconciliation completed I instructed patient to monitor blood pressure at home. I told the patient to record her blood pressure and to follow-up with PCP. Hypertension See management above Hyperlipidemia Continue with statin Hypothyroidism Continue with levothyroxine 37.5 mcg p.o. daily GERD Continue with Pepcid 20 mg p.o. daily Coronary artery disease Hold Plavix until cleared by trauma service Lumbar compression fracture As per your trauma service I reviewed the lumbar x-ray which shows L4 compression Patient has a back brace. DVT prophylaxis: Will defer to primary team Objective - Vital Signs Vital signs: Vital Signs Temp 98.0 F 01/09/24 07:05 Pulse 75 01/09/24 07:05 Resp 16 01/09/24 07:05 BP 97/52 01/09/24 07:05 Pulse Ox 100 01/09/24 07:05 FiO2 Intake & Output 01/08/24 01/09/24 01/09/24 18:59 06:59 18:59 Weight 61.235 kg Other: Voiding Method Bedside Commode Bedside Commode # Voids 1 - Labs CBC & Chem 7: 01/08/24 11:22 01/08/24 11:22 Labs: Abnormal Lab Results - Last 24 Hours (Table) 01/08/24 Range/Units 11:22 Glucose 102 H (74-99) mg/dL
--- NOTE | 2024-01-09 11:21 | P.PN ---
Progress Note - Text Progress Note Date: 01/09/24 Orthopedic spine: History of present illness: Patient is a very pleasant 78-year-old female who is seen and examined the bedside for follow-up evaluation of her lumbar spine. She was originally seen examined in the emergency department yesterday, 01/09/2024, for documented L4 compression fracture deformity. Since being seen and examined yesterday x-ray imaging has been performed of her lumbar spine. She does continue to have some increased lumbar pain status post fall. She continues to deny any lower extremity weakness bilaterally. She states she did have an episode of some anterior thigh pain which is currently adequately controlled. Patient states she is have a history of falls over the past several years. A prescription was also written, signed, provided to case management to obtain LSO bracing for her known compression fracture deformity. This was delivered and fitted appropriately. Patient states her pain is 50% to 60% better with the brace intact. She is known to to be on long-term anticoagulation with Plavix. She underwent repeat CT imaging yesterday which was negative for acute intracranial process. Patient did suffer a head laceration requiring gustabo to the posterior head at the time of the fall. She is admitted to trauma surgery. She is does not have any other current complaints at the bedside. She states she would like to work through conservative treatment options for her lumbar spine. Physical exam: Patient is awake, alert, and oriented 3 Vital signs stable Pain with palpation along the lumbosacral junction and over the right sacroiliac joint Dorsiflexion and plantarflexion positive sustained bilaterally Patient currently has her LSO brace intact and is fitted appropriately Patient is able to perform hip flexion bilaterally without difficulty. Calves are soft nontender Pertinent studies: X-rays of the lumbosacral spine taken on 01/08/2024: Degenerative scoliosis; L4 superior endplate compression fracture deformity with approximately 15% height loss; L5-S1 severe degenerative disc disease; no spondylolisthesis; lower facet spondylosis Assessment: Status post fall Acute lumbosacral pain Syncopal episode Acute traumatic L4 compression fracture status post fall L5-S1 severe degenerative disc disease Mild degenerative scoliosis Hypertension Hyperlipidemia Thyroid disorder Coronary artery disease Posterior head laceration requiring staple status post fall Plan: 1. After reviewing of imaging, physical examination the patient, and further discussion with the patient, will currently plan to have the patient start working through conservative treatment at this time. Patient was diagnosed with further imaging with an L4 compression fracture while at [facility]. X-ray imaging of the lumbosacral spine performed yesterday confirms L4 superior endplate compression fracture deformity. This also correlates well with the patient's increased lumbosacral pain status post fall. We will plan to continue with conservative treatment with bracing. We will continue with our plan as set forth yesterday. A prescription has been written and provided to case management for an LSO brace. Once this brace is delivered and fitted appropriately, patient should wear this brace while sitting upright at greater than 45, during increase activities, during ambulation. Brace does not have to or while lying in bed or while bathing. Patient may mobilize to the restroom before her brace is delivered but patient should avoid working with physical therapy or increased activities, bending, twisting, or ambulation. Following fitting of this brace, patient is clear for discharge from an orthopedic spine standpoint. Following discharge, patient may follow-up with Rossy Duran PA-C or Dr. Dada Clancy at [facility] in 2 to 3 weeks for further evaluation. Currently planning for any acute surgical intervention in regards to her lumbar spine. Patient would like to work through conservative treatment options. MAPS has been reviewed today, 01/09/2024, with an Overall Overdose Risk Score of 000. An "Opiod Start Talking" Form has been signed and placed in the patient's chart. A prescription has been written for Ultram 50 mg, 1 tab, every 6 hours, as needed for acute pain, dispense #28. Prescription is sent to the [facility] pharmacy located within [facility] per request of the patient. 2. Patient will continue to be seen and examined by multiple other medical providers for her other medical diagnoses. I have reviewed the patient and the dictation above as well as the imaging. I agree with the above. She can do well with treatment with bracing and we will follow her closely on outpatient basis to consider further treatment options if necessary.
--- NOTE | 2024-01-09 13:39 | P.DS ---
Providers Date of admission: 01/08/24 14:09 Expected date of discharge: 01/09/24 Attending physician: Jovi Ferrer DO Consults: 01/08/24 05:01 Consult Physician Routine Consulting Provider: Emily Isabel Consult Reason/Comments: medical management Do you want consulting provider notified?: Yes 01/08/24 08:21 Consult Physician Routine Consulting Provider: Bubba Clancy Consult Reason/Comments: L4 compression fracture Do you want consulting provider notified?: Yes Primary care physician: Alonso Huff Hospital Course: Discharge diagnosis 1. Syncopal episode with fall and trauma to head and lower back 2. Posterior head lack status post gustabo 3. Acute/subacute L4 compression fracture Hospital course This is a 78-year-old female who was a transfer from [facility]. Patient had been sitting on the edge of a hot tub yesterday evening where she became lightheaded and had a syncopal episode. Patient believes she had passed out for about 3 to 4 minutes and fell hitting the back of her head and her lower back on the cement. Patient does have head laceration with gustabo that were placed at [facility]. Patient had CT scan of the chest, abdomen and pelvis, CT scan of the brain and cervical spine. Imaging did report acute/subacute L4 compression fracture otherwise no acute findings noted. Patient was seen by spine orthopedic service and a LSO back brace was prescribed. Patient has been up and ambulating. She has been cleared by orthopedic service and medicine service for discharge. Patient's pain is controlled. She is tolerating diet. She is stable for discharge. Please refer to chart for any further details. Physician Physical Education Specialist note has been reviewed by physician. Signing provider agrees with the documented findings, assessment, and plan of care. Attestation Patient seen and examined at bedside. Presented as a trauma admission and found to have L4 compression fracture. Evaluated by orthopedic spine service with plan for LSO back brace and outpatient follow-up. She was cleared by physical therapy. Tolerating diet and plan for discharge home with follow-up with her primary care physician and orthopedic spine team. Yovanny Souza DO Patient Condition at Discharge: Stable Plan - Discharge Summary Discharge Rx Participant: No New Discharge Prescriptions: New lisinopriL [Zestril] 20 mg PO HS tab traMADol HCl [Ultram] 50 mg PO Q6H PRN #28 tab PRN Reason: Pain Docusate [Colace] 100 mg PO BID #30 capsule Cyclobenzaprine [Flexeril] 10 mg PO DAILY #7 tab Continue Nitroglycerin Sl Tabs [Nitrostat] 0.4 mg SUBLINGUAL Q5M PRN PRN Reason: Chest Pain Metoclopramide [Reglan] 10 mg PO BID PRN PRN Reason: Nausea Flunisolide 1 spr EA NOSTRIL BID PRN PRN Reason: Allergy Symptoms amLODIPine [Norvasc] 10 mg PO QAM Clopidogrel [Plavix] 75 mg PO HS Rosuvastatin [Crestor] 20 mg PO QAM Famotidine [Pepcid] 20 mg PO QAM Levothyroxine Sodium [Synthroid] 37.5 mcg PO DAILY Discontinued hydrALAZINE HCL [Apresoline] 100 mg PO TID lisinopriL [Zestril] 20 mg PO BID Discharge Medication List Metoclopramide [Reglan] 10 mg PO BID PRN 01/06/15 [History] Nitroglycerin Sl Tabs [Nitrostat] 0.4 mg SUBLINGUAL Q5M PRN 01/06/15 [History] Clopidogrel [Plavix] 75 mg PO HS 01/08/24 [History] Famotidine [Pepcid] 20 mg PO QAM 01/08/24 [History] Flunisolide 1 spr EA NOSTRIL BID PRN 01/08/24 [History] Levothyroxine Sodium [Synthroid] 37.5 mcg PO DAILY 01/08/24 [History] Rosuvastatin [Crestor] 20 mg PO QAM 01/08/24 [History] amLODIPine [Norvasc] 10 mg PO QAM 01/08/24 [History] Cyclobenzaprine [Flexeril] 10 mg PO DAILY #7 tab 01/09/24 [Rx] Docusate [Colace] 100 mg PO BID #30 capsule 01/09/24 [Rx] lisinopriL [Zestril] 20 mg PO HS tab 01/09/24 [Rx] traMADol HCl [Ultram] 50 mg PO Q6H PRN #28 tab 01/09/24 [Rx] Follow up Appointment(s)/Referral(s): Alonso Huff MD [Primary Care Provider] - 1-2 days Andrae Duran PAC [PHYSICIAN WILDLAND FIREFIGHTER] - 2 Weeks (Patient may follow-up with Andrae Duran PA-C or Dr. Dada Clancy at [facility] in 2-3 weeks following discharge. ) Yovanny Souza DO [Doctor of Osteopathic Medicine] - 1 Week Activity/Diet/Wound Care/Special Instructions: 1. Patient may wear LSO brace for comfort and support while sitting upright at greater than 45, while working with therapy, and while ambulating; patient does not have to wear the brace while lying in bed or bathing 2. Patient should avoid excessive bending, twisting, and lifting; no lifting greater than 10 pounds Discharge Disposition: HOME SELF-CARE
[2024-01-09 13:59] VITALS: BP 99/61; PULSE 67
[2024-01-09] MEDS ORDERED: lisinopriL 20 MG TAB PO SCH (21:00)
== END 2024-01-09 15:01 | disposition home or self-care (01) | DRG 552 ==
LOC: EC 03:01 → 4SSUR 05:04 → OBSVTOIN 14:09 → 4SSUR 15:54
PROVIDERS: ADMIT Surgery; ATTEND Surgery
DX: S32.049A Unspecified fracture of fourth lumbar vertebra, initial encounter for closed fracture (principal); S01.91XA Laceration without foreign body of unspecified part of head, initial encounter; I34.1 Nonrheumatic mitral (valve) prolapse; K21.9 Gastro-esophageal reflux disease without esophagitis; M41.50 Other secondary scoliosis, site unspecified; W19.XXXA Unspecified fall, initial encounter; E03.9 Hypothyroidism, unspecified; E78.5 Hyperlipidemia, unspecified; E86.0 Dehydration; I10 Essential (primary) hypertension; I25.10 Atherosclerotic heart disease of native coronary artery without angina pectoris; I34.0 Nonrheumatic mitral (valve) insufficiency; Z79.01 Long term (current) use of anticoagulants; Z79.02 Long term (current) use of antithrombotics/antiplatelets; Z79.890 Hormone replacement therapy; Z79.899 Other long term (current) drug therapy; Z95.5 Presence of coronary angioplasty implant and graft; Z91.81 History of falling; Z88.5 Allergy status to narcotic agent; Z88.8 Allergy status to other drugs, medicaments and biological substances
CPT/HCPCS: 70450; 72100; 80053; 84484; 85025; 93005; 96361; 96374; 96375; 99291